=== PATIENT | female | born 2000 | race Caucasian/White ===

== ENCOUNTER 2021-05-23 01:46 | Emergency (ER) | payer MEDICAID, OTHER ==
--- NOTE | 2021-05-23 06:25 | ED Physician Documentation ---
History of Present Illness - Stated complaint Stated Complaint: MHE - Chief complaint Chief Complaint: MHE - History obtained from History obtained from: Patient - Additonal information Additional information: 20-year-old woman, previously healthy with history of self-injurious behavior (cutting), but with no formal psychiatric diagnosis, presents with depressive symptoms tonight. Patient states that she had 3 power balls (alcoholic beverages) and her drinking has been a source of contention with her mother in the past, who called the police. she denies SI/HI/AVH but does state she has been suicidal in the past without active plan. reported that she was very anxious en route to the hospital but otherwise behaving normally. Review of Systems Psychiatric: reports: Depressed, Anxiety. denies: Suicidal, Homicidal, Hallucinations PD PAST MEDICAL HISTORY - Past Surgical History Past Surgical History: No - Present Medications Home Medications: Ambulatory Orders Medication Instructions Recorded Confirmed No Known Home Medications 05/27/13 03/01/15 - Allergies Allergies/Adverse Reactions: Allergies Allergy/AdvReac Type Severity Reaction Status Date / Time No Known Drug Allergies Allergy Verified 03/01/15 22:11 - Social History Does the pt smoke?: No Smoking Status: Never smoker Does the pt drink ETOH?: No Does the pt have substance abuse?: No - Immunizations Immunizations are current?: Yes Immunizations: TDAP current <10years - POLST Patient has POLST: No PD ED PE NORMAL - Vitals Vital signs reviewed: Yes - General General: Alert and oriented X 3, No acute distress, Well developed/nourished - HEENT HEENT: Atraumatic, PERRL, EOMI - Neck Neck: Supple, no meningeal sign - Cardiac Cardiac: RRR - Respiratory Respiratory: No respiratory distress, Clear bilaterally - Abdomen Abdomen: Non tender, Non distended - Derm Derm: Normal color, Warm and dry - Extremities Extremities: No deformity - Neuro Neuro: Alert and oriented X 3, No motor deficit, No sensory deficit - Psych Psych: Other (anxious mood and affect. denies SI/HI/AVH. clinically sober) Results - Vitals Vitals: Vital Signs - 24 hr 05/23/21 02:06 Temperature 36.9 C Heart Rate 102 H Respiratory 18 Rate Blood Pressure 124/91 H O2 Saturation 96 Oxygen O2 Source Room air PD MEDICAL DECISION MAKING - ED course ED course: 20-year-old woman presents after being brought in by with concern by mother of possible suicidal comments at home related to an argument over her drinking alcohol. Patient with no active SI/HI/AVH in the emergency department. Clinically sober. Not interested in IPP eval. Patient would like to talk to a perinatal social worker for resources for depression management but declining bloodwork. Will have SW eval in AM. Patient endorsed to Dr. London, daytime MD for further management and care.
--- NOTE | 2021-05-23 09:30 | ED Physician Documentation ---
ED Addendum - Addendum Addendum: 05/23/21 09:23 20-year-old female reports that she drinks about once per week and last night she was drinking something that she had not drank previously and she became intoxicated and there was a bit of drama at her home. She is uncertain exactly what the drama was because she does have a fuzzy memory over that. She does remember coming to the hospital with the police and wanting to come with them because of the drama at her home. She feels that things will be fine today at home she has no suicidal ideation she states that she does not drink every day that she drinks about once per week and does not think that she will have a problem with alcohol withdrawal symptoms. She does indicate that she has had an issue with drama relating to her drinking more than once. She is given resources by renal social worker. This morning she is feeling nauseated and has vomited in the emergency department. We have provided fluid for the patient and Greg.
[2021-05-23] MEDS ORDERED: ONDANSETRON ODT 4 MG TABLET TL STA (09:31)
[2021-05-23 09:43] VITALS: BP 108/68
== END 2021-05-23 10:30 | disposition home or self-care (01) ==
LOC: EDUNIT# → ED 01:46
DX: F10.94 Alcohol use, unspecified with alcohol-induced mood disorder (principal)
CPT/HCPCS: 99283; Q0162